=== PATIENT | male | born 1960 | race Caucasian/White ===

== ENCOUNTER → 2017-08-10 | Outpatient (CLI) | payer OTHER | END | disposition home or self-care (01) | LOC: CARD 13:32 | DX: I10 Essential (primary) hypertension (principal); I51.7 Cardiomegaly ==

== ENCOUNTER → 2017-09-22 | Outpatient (CLI) | payer OTHER | END | disposition home or self-care (01) | LOC: RAD 10:56 | DX: M16.11 Unilateral primary osteoarthritis, right hip (principal) ==

== ENCOUNTER 2018-02-27 22:28 | Emergency (ER) | payer OTHER ==
[~2018-02-27] VITALS: Ht 182.8 cm; Wt 152.4 kg
[2018-02-27] MEDS ORDERED: NEXIUM40 MG PO (22:36)
[2018-02-27] MEDS ORDERED: ACTOS15 M1 PO (22:36)
[2018-02-27] MEDS ORDERED: JANUVIA100 MG PO (22:37)
[2018-02-27] MEDS ORDERED: Zestril,Prinivi40 MG PO (22:37)
[2018-02-28] MEDS ORDERED: AUGMENTIN 875875 MG PO (00:27)
== END 2018-02-28 01:41 | disposition home or self-care (01) ==
LOC: ED 22:28
DX: S61.402A Unspecified open wound of left hand, initial encounter (principal); S60.457A Superficial foreign body of left little finger, initial encounter; Z23 Encounter for immunization; I10 Essential (primary) hypertension; E11.9 Type 2 diabetes mellitus without complications; E78.00 Pure hypercholesterolemia, unspecified; F17.200 Nicotine dependence, unspecified, uncomplicated; Z79.899 Other long term (current) drug therapy; W34.09XA Accidental discharge from other specified firearms, initial encounter; Y93.89 Activity, other specified; Y92.89 Other specified places as the place of occurrence of the external cause; Y99.8 Other external cause status

== ENCOUNTER → 2020-12-09 | Outpatient (CLI) | payer OTHER ==
[~2020-12-09] MED LIST: ACTOS15 M1 PO; AUGMENTIN 875875 MG PO; JANUVIA100 MG PO; NEXIUM40 MG PO; Zestril,Prinivi40 MG PO
== END | disposition home or self-care (01) ==
LOC: RAD 11:29
PROVIDERS: ATTEND Orthopaedic Surgery
DX: M54.5 Low back pain (principal)

== ENCOUNTER → 2021-09-29 | Outpatient (CLI) | payer OTHER | END | disposition home or self-care (01) | LOC: RAD 13:17 | PROVIDERS: ATTEND Orthopaedic Surgery | DX: M51.37 Other intervertebral disc degeneration, lumbosacral region (principal); I70.0 Atherosclerosis of aorta; M48.062 Spinal stenosis, lumbar region with neurogenic claudication ==

== ENCOUNTER → 2022-10-19 | Outpatient (CLI) | payer OTHER | END | disposition home or self-care (01) | LOC: RAD 13:49 | PROVIDERS: ATTEND Internal Medicine Nephrology | DX: M50.30 Other cervical disc degeneration, unspecified cervical region (principal) ==

== ENCOUNTER → 2023-01-04 | Outpatient (CLI) | payer OTHER | END | disposition home or self-care (01) | LOC: MRI 01:44 | PROVIDERS: ATTEND Internal Medicine Nephrology | DX: M47.812 Spondylosis without myelopathy or radiculopathy, cervical region (principal); M25.78 Osteophyte, vertebrae; M48.062 Spinal stenosis, lumbar region with neurogenic claudication; R60.9 Edema, unspecified ==